=== PATIENT | male | born 1975 | race African-American/Black ===

== ENCOUNTER 2017-10-25 11:22 | Observation (INO) | payer BC ==
[2017-10-25] MEDS ORDERED: Aspirin 81 MG Tab.Chew PO ONE (11:28)
--- NOTE | 2017-10-25 11:42 | EDM.PDOC ---
ED HPI GENERAL MEDICAL PROBLEM - General Chief Complaint: Chest Pain Stated Complaint: CHEST PAIN Time Seen by Provider: 10/25/17 11:42 Source of Information: Reports: Patient History Limitations: Reports: No Limitations - History of Present Illness INITIAL COMMENTS - FREE TEXT/NARRATIVE: HISTORY AND PHYSICAL: History of present illness: Patient is a 41-year-old male who presents to the emergency room today with complaints of mid sternal chest pain that goes into his back 1 month. He is not specific on if this pain is radiating to his neck or shoulder. He states the pain is worse when he leans forward or arch his back. Denies shortness of breath, fever or chills. Denies any abdominal pain, nausea, vomiting or diarrhea. No previous history of heart disease. Unsure if he has any family history of heart disease. Review of systems: As per history of present illness and below otherwise all systems reviewed and negative. Past medical history: As per history of present illness and as reviewed below otherwise noncontributory. Surgical history: As per history of present illness and as reviewed below otherwise noncontributory. Social history: No reported history of drug or alcohol abuse. Family history: As per history of present illness and as reviewed below otherwise noncontributory. Physical exam: General: Well-developed and well-nourished 41-year-old male. Nontoxic appearing and in no acute distress. HEENT: Atraumatic, normocephalic, pupils equal and reactive bilaterally, negative for conjunctival pallor or scleral icterus, mucous membranes moist, throat clear, neck supple, nontender, trachea midline. No drooling or trismus noted. No meningeal signs Lungs: Clear to auscultation, breath sounds equal bilaterally, chest nontender. Chest pain is reproducible with leaning forward and arching his head Heart: S1S2, regular rate and rhythm without overt murmur Abdomen: Soft, nondistended, nontender. Negative for masses or hepatosplenomegaly. Negative for costovertebral tenderness. Pelvis: Stable nontender. Genitourinary: Deferred. Rectal: Deferred. Skin: Intact, warm, dry. No lesions or rashes noted. Extremities: Atraumatic, moves all extremities per self without difficulty or deficits, negative for cords or calf pain. Neurovascular unremarkable. Neuro: Awake, alert, oriented. Cranial nerves II through XII unremarkable. Cerebellum unremarkable. Motor and sensory unremarkable throughout. Exam nonfocal. Notes: Lab work is within normal limits. Patient continues to have pain but states it' s more in his back and believes it is due to a previous back surgery. Would like to keep the patient for chest pain r/o possible pericarditis? Dr Fan was notified of this patient. Brisa Andre THERMAL CUTTING TRACER MACHINE OPERATOR, here to evaluate patient. Patient agreeable to observation admission with telemetry. Diagnostics: CBC, CMP, Troponin, EKG, Chest x-ray, Influenza Therapeutics: Aspirin, Nitro, Toradol Impression: Chest Pain Plan: Observation admission with telemetry Definitive disposition and diagnosis as appropriate pending reevaluation and review of above. Chest Pain Score (Numeric/FACES): 4 - Related Data Allergies Allergy/AdvReac Type Severity Reaction Status Date / Time No Known Allergies Allergy Verified 10/25/17 11:29 Home Meds: Home Meds . [No Known Home Meds] 07/19/14 [History] Past Medical History - Past Health History Medical/Surgical History: Denies Medical/Surgical History Social & Family History - Tobacco Use Smoking Status *Q: Never Smoker Second Hand Smoke Exposure: No - Caffeine Use Caffeine Use: Reports: Coffee - Alcohol Use Days Per Week of Alcohol Use: 0 - Recreational Drug Use Recreational Drug Use: No ED ROS GENERAL - Review of Systems Review Of Systems: ROS reveals no pertinent complaints other than HPI. ED EXAM, GENERAL - Physical Exam Exam: See Below (See dictation) Course - Vital Signs Last Recorded V/S: Last Vital Signs Temp 98.3 F 10/25/17 13:16 Pulse 70 10/25/17 13:16 Resp 16 10/25/17 13:16 BP 114/70 10/25/17 13:16 Pulse Ox 97 10/25/17 13:16 - Orders/Labs/Meds Orders: Active Orders 24 hr Category Date Time Status INFLUENZA A+B AG SCREEN [RM] Stat Lab 10/25/17 12:11 Ordered Medication Orders Acetaminophen (Tylenol) 650 mg PO Q4H PRN PRN Reason: Pain (mild 1-3) Cyclobenzaprine HCl (Flexeril) 5 mg PO TID PRN PRN Reason: back pain Morphine Sulfate (Morphine) 2 mg IVPUSH Q2H PRN PRN Reason: Pain (severe 7-10) Stop: 10/26/17 14:12 Sodium Chloride (Saline Flush) 2.5 ml FLUSH ASDIRECTED PRN PRN Reason: Keep Vein Open Labs: Laboratory Tests 10/25/17 10/25/17 Range/Units 11:28 11:28 WBC 3.88 L (4.0-11.0) K/uL RBC 5.61 (4.50-5.90) M/uL Hgb 15.7 (13.0-17.0) g/dL Hct 46.5 (38.0-50.0) % MCV 82.9 (80.0-98.0) fL MCH 28.0 (27.0-32.0) pg MCHC 33.8 (31.0-37.0) g/dL RDW Std Deviation 39.9 (28.0-62.0) fl RDW Coeff of Presley 13 (11.0-15.0) % Plt Count 152 (150-400) K/uL MPV 10.50 (7.40-12.00) fL Neut % (Auto) 37.9 L (48.0-80.0) % Lymph % (Auto) 47.7 H (16.0-40.0) % [place] % (Auto) 12.6 (0.0-15.0) % Eos % (Auto) 1.0 (0.0-7.0) % Baso % (Auto) 0.8 (0.0-1.5) % Neut # (Auto) 1.5 (1.4-5.7) K/uL Lymph # (Auto) 1.9 (0.6-2.4) K/uL [place] # (Auto) 0.5 (0.0-0.8) K/uL Eos # (Auto) 0.0 (0.0-0.7) K/uL Baso # (Auto) 0.0 (0.0-0.1) K/uL Nucleated RBC % 0.0 /100WBC Nucleated RBCs # 0 K/uL Sodium 139 (136-148) mmol/L Potassium 3.9 (3.5-5.1) mmol/L Chloride 103 (98-107) mmol/L Carbon Dioxide 28.3 (21.0-32.0) mmol/L BUN 13 (7.0-18.0) mg/dL Creatinine 1.1 (0.8-1.3) mg/dL Est Cr Clr Drug Dosing TNP Estimated GFR (MDRD) > 60.0 ml/min Glucose 73 L (74-106) mg/dL Calcium 9.3 (8.5-10.1) mg/dL Total Bilirubin 0.8 (0.2-1.0) mg/dL AST 32 (15-37) IU/L ALT 23 (14-63) IU/L Alkaline Phosphatase 48 (46-116) U/L Troponin I < 0.050 (0.000-0.056) ng/mL Total Protein 7.7 (6.4-8.2) g/dL Albumin 4.2 (3.4-5.0) g/dL Globulin 3.5 (2.0-3.5) g/dL Albumin/Globulin Ratio 1.2 L (1.3-2.8) Meds: Medications Generic Name Dose Route Start Last Admin Trade Name Freq PRN Reason Stop Dose Admin Acetaminophen 650 mg 10/25/17 14:11 Tylenol PO Q4H PRN Pain (mild 1-3) Cyclobenzaprine HCl 5 mg 10/25/17 14:11 Flexeril PO TID PRN back pain Morphine Sulfate 2 mg 10/25/17 14:11 Morphine IVPUSH 10/26/17 14:12 Q2H PRN Pain (severe 7-10) Sodium Chloride 2.5 ml 10/25/17 14:11 Saline Flush FLUSH ASDIRECTED PRN Keep Vein Open Discontinued Medications Generic Name Dose Route Start Last Admin Trade Name Freq PRN Reason Stop Dose Admin Aspirin 324 mg 10/25/17 11:28 10/25/17 11:38 Aspirin PO 10/25/17 11:29 324 mg ONETIME ONE Administration Ketorolac Tromethamine 30 mg 10/25/17 11:43 10/25/17 11:46 Toradol IVPUSH 10/25/17 11:44 30 mg ONETIME ONE Administration Nitroglycerin 0.4 mg 10/25/17 12:28 Nitrostat SL Q5M PRN Chest Pain Departure - Departure Time of Disposition: 13:00 Disposition: Refer to Observation Clinical Impression: Chest pain, rule out acute myocardial infarction - My Orders Last 24 Hours: My Active Orders 10/25/17 12:11 INFLUENZA A+B AG SCREEN [RM] Stat - Assessment/Plan Last 24 Hours: My Active Orders 10/25/17 12:11 INFLUENZA A+B AG SCREEN [RM] Stat
[2017-10-25] MEDS ORDERED: Ketorolac 30 MG/ML SDV IVPUSH ONE (11:43)
--- NOTE | 2017-10-25 12:18 | CR ---
EXAMINATION: Portable chest radiograph. HISTORY: Chest pain. FINDINGS: The trachea is midline. The cardiomediastinal silhouette is within normal limits. No pulmonary infilt rates, effusions or pneumothorax. Osseous structures appear unremarkable. IMPRESSION: No acute cardiopulmonary process.
[2017-10-25 12:22] LABS: CHLORIDE,CL 103 mmol/L (98-107); SODIUM,NA 139 mmol/L (136-148)
[2017-10-25] MEDS ORDERED: Nitroglycerin 0.4 MG Tab.SL SL PRN (12:28)
[2017-10-25] MEDS ORDERED: Cyclobenzaprine 5 MG Tab PO PRN (14:11)
[2017-10-25] MEDS ORDERED: Sodium Chloride 0.9% 2.5 ML Syringe FLUSH PRN (14:11)
[2017-10-25] MEDS ORDERED: Acetaminophen 325 MG Tab PO PRN (14:11)
[2017-10-25] MEDS ORDERED: Morphine 4 MG/ML Syringe IVPUSH PRN (14:11)
--- NOTE | 2017-10-25 14:59 | PCM.HP ---
H&P History of Present Illness - General Date of Service: 10/25/17 Admit Problem/Dx: Admission Diagnosis/Problem Admission Diagnosis/Problem Chest pain, rule out acute myocardial infarction Source of Information: Patient History Limitations: Reports: No Limitations - History of Present Illness Initial Comments - Free Text/Narative: This 41 year old AA male with no significant pmh presented to the ED today with complaints of chest pain and upper back pain that has been going on for approximately 2 months. He reports it got worse today, it hurts when he leans forward and when he extends backwards. He denies any associated symptoms such as heart burn, palpitations, shortness of breath diaphoresis or lightheadedness. He has taken some Tylenol and Motrin at home which helps, but the pain has been consistent. He denies any injury or trauma to his chest or person. No falls, fights or push pull injuries that he can recall. He works in a warehouse but doesn't lift heavy objects. He denies abdominal pain, urinary symptoms or black or blood bowel movements. He does not smoke or use tobacco products, occassionally drinks some champagne and no recreational drug use. Family hx is other negative for CAD or DM. In the ED labwork WNL. Troponin negative. CXR ngative and EKG reveals SR with no acute ischemic changes. VS stable. He was given some Toradol for pain, which helped a little bit. He was offered discharge but preferred to be monitored overnight. He will be admitted for observation for atypical chest pain. No PCP Chest Pain Score (Numeric/FACES): 4 - Related Data Allergies/Adverse Reactions: Allergies Allergy/AdvReac Type Severity Reaction Status Date / Time No Known Allergies Allergy Verified 10/25/17 11:29 Home Medications: Home Meds . [No Known Home Meds] 07/19/14 [History] Past Medical History - Past Health History Medical/Surgical History: Denies Medical/Surgical History Cardiovascular History: Reports: None. Denies: Afib, Blood Clots/VTE/DVT, CAD, High Cholesterol, Hypertension, [place] Respiratory History: Denies: Asthma, COPD Gastrointestinal History: Reports: None. Denies: GERD, GI Bleed Neurological History: Reports: None. Denies: CVA, Migraines, TIA Endocrine/Metabolic History: Denies: Diabetes, Type II - Past Surgical History Cardiovascular Surgical History: Reports: None Respiratory Surgical History: Reports: None GI Surgical History: Reports: None Male Surgical History: Reports: None Endocrine Surgical History: Reports: None Social & Family History - Family History Cardiac: Reports: None Endocrine/Metabolic: Reports: None - Tobacco Use Smoking Status *Q: Never Smoker Second Hand Smoke Exposure: No - Caffeine Use Caffeine Use: Reports: Coffee, Soda - Alcohol Use Days Per Week of Alcohol Use: 0 Alcohol Use Frequency: Rarely, Socially - Recreational Drug Use Recreational Drug Use: No - Living Situation & Occupation Occupation: Employed H&P Review of Systems - Review of Systems: Review Of Systems: See Below General: Reports: No Symptoms. Denies: Fever, Chills, Malaise, Weakness HEENT: Reports: No Symptoms. Denies: Headaches, Sinus Congestion, Sore Throat, Vertigo Pulmonary: Reports: No Symptoms. Denies: Shortness of Breath, Cough, Sputum Cardiovascular: Reports: Chest Pain (R to mid sternal pain which radiates to RU back). Denies: Edema Gastrointestinal: Reports: No Symptoms. Denies: Abdominal Pain, Black Stool, Bloody Stool, Nausea, Vomiting Genitourinary: Reports: No Symptoms. Denies: Dysuria, Frequency, Burning, Pain Musculoskeletal: Reports: Other (upper R back pain, ) Psychiatric: Reports: No Symptoms Neurological: Reports: No Symptoms Hematologic/Lymphatic: Reports: No Symptoms Immunologic: Reports: No Symptoms Exam - Exam Exam: See Below - Vital Signs Vital Signs: Last Vital Signs Temp 98.3 F 10/25/17 13:16 Pulse 70 10/25/17 13:16 Resp 16 10/25/17 13:16 BP 114/70 10/25/17 13:16 Pulse Ox 97 10/25/17 13:16 Weight: 63.503 kg - Exam General: Alert, Oriented, Cooperative HEENT: Conjunctiva Clear, Mucosa Moist & [place], Posterior Pharynx Clear Neck: Supple, Trachea Midline, Full Range of Motion. No: Lymphadenopathy Lungs: Clear to Auscultation, Normal Respiratory Effort Cardiovascular: Regular Rate, Regular Rhythm, Other (tednerness to R chest with firm palpation.) GI/Abdominal Exam: Normal Bowel Sounds, Soft, Non-Tender, No Organomegaly, No Distention, No Abnormal Bruit, No Mass, Pelvis Stable Back Exam: Normal Inspection, Full Range of Motion, Other (tenderness and reproducible pain to R mid trapezius) Extremities: Normal Inspection, Normal Range of Motion, Non-Tender, No Pedal Edema, Normal Capillary Refill Skin: Warm, Dry, Intact Neuro Extensive - Mental Status: Alert, Oriented x3 Neuro Extensive - Motor, Sensory, Reflexes: CN II-XII Intact, Normal Gait, Normal Reflexes Psychiatric: Alert, Normal Affect, Normal Mood - Patient Data Lab Results Last 24 hrs: Laboratory Results - last 24 hr 10/25/17 10/25/17 Range/Units 11:28 11:28 WBC 3.88 L (4.0-11.0) K/uL RBC 5.61 (4.50-5.90) M/uL Hgb 15.7 (13.0-17.0) g/dL Hct 46.5 (38.0-50.0) % MCV 82.9 (80.0-98.0) fL MCH 28.0 (27.0-32.0) pg MCHC 33.8 (31.0-37.0) g/dL RDW Std Deviation 39.9 (28.0-62.0) fl RDW Coeff of Presley 13 (11.0-15.0) % Plt Count 152 (150-400) K/uL MPV 10.50 (7.40-12.00) fL Neut % (Auto) 37.9 L (48.0-80.0) % Lymph % (Auto) 47.7 H (16.0-40.0) % [place] % (Auto) 12.6 (0.0-15.0) % Eos % (Auto) 1.0 (0.0-7.0) % Baso % (Auto) 0.8 (0.0-1.5) % Neut # (Auto) 1.5 (1.4-5.7) K/uL Lymph # (Auto) 1.9 (0.6-2.4) K/uL [place] # (Auto) 0.5 (0.0-0.8) K/uL Eos # (Auto) 0.0 (0.0-0.7) K/uL Baso # (Auto) 0.0 (0.0-0.1) K/uL Nucleated RBC % 0.0 /100WBC Nucleated RBCs # 0 K/uL Sodium 139 (136-148) mmol/L Potassium 3.9 (3.5-5.1) mmol/L Chloride 103 (98-107) mmol/L Carbon Dioxide 28.3 (21.0-32.0) mmol/L BUN 13 (7.0-18.0) mg/dL Creatinine 1.1 (0.8-1.3) mg/dL Est Cr Clr Drug Dosing TNP Estimated GFR (MDRD) > 60.0 ml/min Glucose 73 L (74-106) mg/dL Calcium 9.3 (8.5-10.1) mg/dL Total Bilirubin 0.8 (0.2-1.0) mg/dL AST 32 (15-37) IU/L ALT 23 (14-63) IU/L Alkaline Phosphatase 48 (46-116) U/L Troponin I < 0.050 (0.000-0.056) ng/mL Total Protein 7.7 (6.4-8.2) g/dL Albumin 4.2 (3.4-5.0) g/dL Globulin 3.5 (2.0-3.5) g/dL Albumin/Globulin Ratio 1.2 L (1.3-2.8) Result Diagrams: 10/25/17 11:28 10/25/17 11:28 Mannie Results Last 24 hrs: Microbiology 10/25/17 12:11 Influenza Type A Antigen Screen - Final Nasopharyngeal Swab NEGATIVE INFLUENZA A VIRUS AG Influenza Type B Antigen Screen - Final NEGATIVE INFLUENZA B VIRUS AG EKG INTERPRETATION EKG Date: 10/25/17 Rhythm: NSR Rate (Beats/Min): 72 P-Wave: Present QRS: Normal ST-T: Normal QT: Normal *Q Meaningful Use (ADM) - VTE Risk Assess *Q Each Risk Factor Represents 1 Point: Age 41 - 59 years Total Score 1 Point Risk Factors: 1 Each Risk Factor Represents 2 Points: None Total Score 2 Point Risk Factors: 0 Each Risk Factor Represents 3 Points: None Total Score 3 Point Risk Factors: 0 Each Risk Factor Represents 5 Points: None Total Score 5 Point Risk Factors: 0 Venous Thromboembolism Risk Factor Score *Q: 1 - Problem List (1) Atypical chest pain SNOMED Code(s): 055115792 ICD Code: R07.89 - OTHER CHEST PAIN Status: Acute Current Visit: Yes (2) Upper back pain on right side SNOMED Code(s): 543850780 ICD Code: M54.9 - DORSALGIA, UNSPECIFIED Status: Acute Current Visit: Yes Problem List Initiated/Reviewed/Updated: Yes Orders Last 24hrs: Active Orders 24 hr Category Date Time Status Admission Status [Patient Status] [ADT] Stat ADT 10/25/17 12:59 Active Intake and Output [RC] Q12H Care 10/25/17 14:11 Active May Shower [RC] ASDIRECTED Care 10/25/17 14:11 Active Oxygen Therapy [RC] PRN Care 10/25/17 14:11 Active Telemetry Monitoring [Cardiac Monitoring] [RC] . Care 10/25/17 14:10 Active DIRECTED Up ad Wanda [RC] ASDIRECTED Care 10/25/17 14:11 Active Vital Signs [RC] Q4H Care 10/25/17 14:11 Active Heart Healthy Diet [DIET] Diet 10/25/17 Dinner Active INFLUENZA A+B AG SCREEN [RM] Stat Lab 10/25/17 12:11 Ordered TROPONIN I [CHEM] Q6H Lab 10/25/17 17:30 Ordered TROPONIN I [CHEM] Q6H Lab 10/25/17 23:30 Ordered Acetaminophen [Tylenol] Med 10/25/17 14:11 Active 650 mg PO Q4H PRN Cyclobenzaprine [Flexeril] Med 10/25/17 14:11 Active 5 mg PO TID PRN Morphine Med 10/25/17 14:11 Active 2 mg IVPUSH Q2H PRN Sodium Chloride 0.9% [Saline Flush] Med 10/25/17 14:11 Active 2.5 ml FLUSH ASDIRECTED PRN Heat Therapy [OM.PC] Routine Oth 10/25/17 14:13 Ordered Ice Pack [Ice Therapy] [OM.PC] Routine Oth 10/25/17 14:13 Ordered Saline Lock Insert [OM.PC] Routine Oth 10/25/17 14:11 Ordered Sequential Compression Device [OM.PC] Per Unit Routine Oth 10/25/17 14:11 Ordered Resuscitation Status Routine Resus Stat 10/25/17 14:11 Ordered Medication Orders Acetaminophen (Tylenol) 650 mg PO Q4H PRN PRN Reason: Pain (mild 1-3) Cyclobenzaprine HCl (Flexeril) 5 mg PO TID PRN PRN Reason: back pain Morphine Sulfate (Morphine) 2 mg IVPUSH Q2H PRN PRN Reason: Pain (severe 7-10) Stop: 10/26/17 14:12 Sodium Chloride (Saline Flush) 2.5 ml FLUSH ASDIRECTED PRN PRN Reason: Keep Vein Open Assessment/Plan Comment:: This 41 year old male admitted with atypical chest pain and RU back pain 1. Atypical chest pain: Will monitor on telemetry and trend troponins, pain likely secondary to back pain/musculoskeletal in nature. 2. Back pain: Will give Tylenol and Flexeril PRN. Hold NSAID until troponins negative due to ruling out ACS. heat and ice PRN. VTE prophylaxis: SCDs and ambulation Dispo: 1 day
--- NOTE | 2017-10-26 13:40 | PCM.DCSUM1 ---
Discharge Summary - Hospital Course HPI Initial Comments: Discharge Summary Date of admission: 10/25/2017 Date of discharge: 10/26/2017 Admitting diagnosis: #1. Atypical chest pain likely secondary to back pain/musculoskeletal pain #2. #3. #4. #5. Discharge diagnoses: #1. Atypical chest pain resolved secondary to back pain/muscle skeletal pain, acute coronary syndrome ruled out, troponins negative 3, no EKG findings #2. #3. #4. #5. Consultations: None Procedures: None Hospitalization course: Patient was admitted for acute cord syndrome rule out, he does not have any history of cardiovascular disease, he does not have any elevated risk factors for cardiovascular disease, patient was simply complaining of back pain and some musculoskeletal pain, troponins were negative 3, EKG did not indicate any abnormalities, patient was reassessed in the a.m. and was no longer having any chest pain and was discharged and asked to follow- up and establish with Dr. Goodwin for his PCP. Disposition on discharge: Home Condition on discharge: Stable Discharge medications: None Follow-up instructions: Follow-up with Dr. Goodwin PCP - Discharge Data Discharge Date: 10/26/17 Discharge Disposition: Home, Self-Care 01 Condition: Fair - Patient Instructions Diet: Usual Diet as Tolerated Activity: Apply Ice Driving: May Drive Today Notify Provider of: Fever, Increased Pain, Swelling and Redness, Drainage, Nausea and/or Vomiting - Discharge Plan Home Medications: Home Meds . [No Known Home Meds] 07/19/14 [History] Patient Handouts: Nonspecific Chest Pain, [id number] Referrals: Raul Goodwin MD [Resident] - 11/04/17 2:30 pm - Discharge Summary/Plan Comment DC Time >30 min.: No - Patient Data Vitals - Most Recent: Last Vital Signs Temp 36.2 C 10/26/17 12:00 Pulse 69 10/26/17 12:00 Resp 16 10/26/17 12:00 BP 116/70 10/26/17 12:00 Pulse Ox 99 10/26/17 12:00 Weight - Most Recent: 63.503 kg I&O - Last 24 hours: Intake & Output 10/25/17 10/26/17 10/26/17 22:59 06:59 14:59 Intake Total 700 900 Output Total 995 400 Balance -295 500 Lab Results - Last 24 hrs: Laboratory Results - last 24 hr 10/25/17 10/25/17 Range/Units 17:34 23:27 Troponin I < 0.050 < 0.050 (0.000-0.056) ng/mL LAURENCE Results - Last 24 hrs: Microbiology 10/25/17 12:11 Influenza Type A Antigen Screen - Final Nasopharyngeal Swab NEGATIVE INFLUENZA A VIRUS AG Influenza Type B Antigen Screen - Final NEGATIVE INFLUENZA B VIRUS AG Med Orders - Current: Current Medications Acetaminophen (Tylenol) 650 mg PO Q4H PRN PRN Reason: Pain (mild 1-3) Cyclobenzaprine HCl (Flexeril) 5 mg PO TID PRN PRN Reason: back pain Morphine Sulfate (Morphine) 2 mg IVPUSH Q2H PRN PRN Reason: Pain (severe 7-10) Sodium Chloride (Saline Flush) 2.5 ml FLUSH ASDIRECTED PRN PRN Reason: Keep Vein Open Discontinued Medications Aspirin (Aspirin) 324 mg PO ONETIME ONE Stop: 10/25/17 11:29 Last Admin: 10/25/17 11:38 Dose: 324 mg Ketorolac Tromethamine (Toradol) 30 mg IVPUSH ONETIME ONE Stop: 10/25/17 11:44 Last Admin: 10/25/17 11:46 Dose: 30 mg Nitroglycerin (Nitrostat) 0.4 mg SL Q5M PRN PRN Reason: Chest Pain
== END 2017-10-26 13:30 | disposition home or self-care (01) ==
LOC: MW.ED 11:22 → MW.MS 12:59
PROVIDERS: ADMIT Family Medicine; ATTEND Family Medicine
DX: R07.89 Other chest pain (principal); M54.9 Dorsalgia, unspecified
CPT/HCPCS: 36415; 71045; 80053; 84484; 85025; 87804; 96374; 99285; A9270; J1885; G0378